=== PATIENT | female | born 1990 | race Two or more races ===

== ENCOUNTER 2020-01-02 12:07 | Emergency (ER) | payer MEDICAID, OTHER ==
[~2020-01-02] VITALS: Ht 162.6 cm; Wt 63.5 kg
[2020-01-02 15:45] VITALS: BP 149/85
== END 2020-01-02 15:57 | disposition home or self-care (01) ==
LOC: ER 12:07
DX: R51.9 Headache, unspecified (principal); R53.83 Other fatigue; Z20.828 Contact with and (suspected) exposure to other viral communicable diseases
CPT/HCPCS: 36415; 87426